=== PATIENT | female | born 1995 | race Two or more races ===

== ENCOUNTER 2025-02-10 12:49 | Emergency (ER) | payer OTHER ==
[~2025-02-10] VITALS: Ht 165.1 cm; Wt 86.2 kg
[~2025-02-10 12:49] MED LIST: DOLOGESIC-DF 51 EACH PO; KEPPRA500 MG; LEVSIN/SL0.125 MG SL; PEPCID40 MG PO; TEGRETOL200 MG PO; TOPAMAX25 MG PO; ZOFRAN8 MG PO
[2025-02-10] MEDS ORDERED: 0.9 % SODIUM CHLORIDE 1,000 ML IV ONE (16:00)
[2025-02-10 18:01] LABS: BASO % 0.7 % (0.1-1.2); EOS # 0.00 (0.04-0.54); EOS % 0.0 % (0.7-7.0); LYMPH # 1.13 (1.18-3.74); LYMPH % 20.5 % (19.3-53.1); MEAN PLATELET VOLUME 9.60 fl (9.4-12.4); MONO # 0.59 (0.24-0.82); MONO % 10.7 % (4.7-12.5); NEUT # 3.74 (1.56-6.13); NEUT % 67.9 % (34.0-71.1); RED CELL DISTRIBUTION WIDTH 11.8 % (11.6-14.4)
[2025-02-10 18:12] LABS: COVID-19 AG NEGATIVE (NEGATIVE)
[2025-02-10 18:15] LABS: ALT/SGPT 24.0 U/L (12-78); AST/SGOT 16.0 U/L (15-37); BILIRUBIN TOTAL 0.42 mg/dL (0.3-1.2); BUN CREA RATIO 18.0 (7.0-25.0); CREATININE SERUM 0.71 mg/dL (0.55-1.02); GFR 96.01; GLOBULINA 3.4 G/DL (2.4-3.5); GLUCOSE FASTING 77.0 mg/dL (65-100); OSMOLALITY SERUM 286.0 MOSM/KG (275-295)
[2025-02-10 18:56] LABS: URINE APPEARANCE Clear; URINE BACTERIA 436.7 uL (0.0-1933); URINE BILIRRUBIN Negative (NEGATIVE); URINE BLOOD Small; URINE COLOR Yellow; URINE EPITHELIAL CELLS 13.8 uL (0.0-38.8); URINE GLUCOSE Negative (NEGATIVE); URINE KETONE Trace (NEGATIVE); URINE LEUKOCYTE Negative; URINE NITRATE Negative; URINE PROTEIN Negative (NEGATIVE); URINE RBC 10.7 uL (0.0-20.8); URINE UROBILINOGEN 1.0 E.U./dl; URINE WBC 12.1 uL (0.0-23.2)
[2025-02-10 19:11] LABS: URINE CAST 0.00 uL (0.0-1.40)
== END 2025-02-10 22:03 ==
LOC: ER 13:19
PROVIDERS: Preventive Medicine Public Health & General Preventive Medicine
DX: G40.802 Other epilepsy, not intractable, without status epilepticus (principal); Z20.822 Contact with and (suspected) exposure to COVID-19